=== PATIENT | male | born 1950 | race Caucasian/White ===

== ENCOUNTER 2021-05-01 20:00 | Emergency (ER) | payer SELFPAY ==
[2021-05-01] MEDS ORDERED: Cephalexin 500 MG Cap PO ONE (20:01)
[2021-05-01] MEDS ORDERED: Lidocaine 1% 30 ML SDV INJECT ONE (20:03)
[2021-05-01] MEDS ORDERED: Bacitracin Oint 1 GM U/D Packet TOP ONE (20:03)
[2021-05-01] MEDS ORDERED: Cephalexin 500 MG Cap ONE (20:45)
--- NOTE | 2021-05-01 20:49 | EDM.PDOC ---
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 - Related Data Allergies Allergy/AdvReac Type Severity Reaction Status Date / Time tetracycline Allergy Hives Verified 05/01/21 20:16 Social & Family History - Tobacco Use Tobacco Use Status *Q: Never Tobacco User - Caffeine Use Caffeine Use: Reports: Coffee - Recreational Drug Use Recreational Drug Use: No ED ROS GENERAL - Review of Systems Review Of Systems: Comprehensive ROS is negative, except as noted in HPI. 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 mild swelling ). No: Limited Range of Motion Neurological: Alert, Oriented, Normal Cognition, Normal Reflexes, No Motor/Sensory Deficits ED SKIN PROCEDURES - Foreign Body Removal Consent Obtained:: Patient Anesthesia Type: Local (1% lidocaine 1.5ml left wrist) Comments:: Area cleansed betadine. Further trimming of remaining hook loops. with improved angulation able to push barbed hook through skin. Fernanda trimmed and remainer of hook removed. No bleeding. mild swelling. Patient tolerated well wound cleansed dressed. Instructions to paitient to follow up if any sign of infection noted Course - Vital Signs Last Recorded V/S: Last Vital Signs Temp 99.1 F 05/01/21 20:14 Pulse 99 05/01/21 20:14 Resp 20 05/01/21 20:14 BP 164/97 H 05/01/21 20:14 Pulse Ox 95 05/01/21 20:14 - Orders/Labs/Meds Meds: Medications Discontinued Medications Generic Name Dose Route Start Last Admin Trade Name Freq PRN Reason Stop Dose Admin Bacitracin 1 dose 05/01/21 20:03 05/01/21 20:40 Bacitracin Oint 1 Gm U/D Packet TOP 05/01/21 20:04 1 dose ONETIME ONE Administration Lidocaine HCl 30 ml 05/01/21 20:03 05/01/21 20:40 Lidocaine 1% 30 Ml Sdv INJECT 05/01/21 20:04 30 ml ONETIME ONE Administration Departure - Departure Time of Disposition: 20:43 Disposition: Home, Self-Care 01 Condition: Good Clinical Impression: Fishing hook foreign body Qualifiers: Encounter type: initial encounter Qualified Code(s): W45.8XXA - Other foreign body or object entering through skin, initial encounter - Discharge Information *PRESCRIPTION DRUG MONITORING PROGRAM REVIEWED*: No *COPY OF PRESCRIPTION DRUG MONITORING REPORT IN PATIENT DEEDEE: No Instructions: Skin Foreign Body Additional Instructions: cold pack to area tonight keflex 500mg one three times daily one week clinic recheck 3-5 days sooner if redness swelliing pain or fever tylenol 500mg every 4 hours as needed for discomfort keep area clean and dry Sepsis Event Note (ED) - Evaluation Sepsis Screening Result: No Definite Risk - Focused Exam Vital Signs: Vital Signs Temp Pulse Resp BP Pulse Ox 05/01/21 20:14 99.1 F 99 20 164/97 H 95
== END 2021-05-01 21:01 | disposition home or self-care (01) ==
LOC: DL.ED 20:00
DX: S60.852A Superficial foreign body of left wrist, initial encounter (principal); Z88.1 Allergy status to other antibiotic agents; W45.8XXA Other foreign body or object entering through skin, initial encounter
CPT/HCPCS: 99283; A9270